=== PATIENT | female | born 1960 | race Two or more races ===

== ENCOUNTER 2021-08-24 07:31 | Emergency (ER) | payer OTHER ==
[2021-08-24 07:55] VITALS: TEMP 97.8; BMI 27.1
[2021-08-24 10:01] LABS: BASO % 0.9 % (0-2.0); EOS % 1.4 % (0-4.5); HEMATOCRIT 37.2 % (32.4-45.2); HEMOGLOBIN 12.3 GM/dL (10.7-15.3); LYMPH % 26.6 % (8-40); MCH 27.6 pg (25.7-33.7); MCHC 33.2 g/dl (32.0-36.0); MEAN CELL VOLUME 83.2 fl (80-96); MEAN PLT VOLUME 8.5 fl (7.5-11.1); MONO % 6.9 % (3.8-10.2); NEUT % 64.2 % (42.8-82.8); PLATELET COUNT 386 10^3/uL (134-434); RBC 4.47 M/mm3 (3.60-5.2); WHITE BLOOD COUNT 7.1 K/mm3 (4.0-10.0)
[2021-08-24 10:20] LABS: CALCIUM 10.3 mg/dL (8.5-10.1)
[2021-08-24 10:21] LABS: ALBUMIN 3.9 g/dl (3.4-5.0)
[2021-08-24 10:24] LABS: CREATININE 0.7 mg/dL (0.55-1.3)
[2021-08-24 10:25] LABS: BILIRUBIN,TOTAL 0.3 mg/dL (0.2-1); TOT PROT 7.7 g/dl (6.4-8.2)
[2021-08-24] MEDS ORDERED: CLINDAMYCIN HCL 150 MG CAPSULE (FP) PO ONE (12:14)
[2021-08-24] MEDS ORDERED: CLINDAMYCIN HCL 150 MG CAPSULE (FP) ONE (12:17)
[2021-08-24] MEDS ORDERED: KETOROLAC TROMETHAMINE 15 MG/ML VIAL ONE (12:18)
[2021-08-24 13:06] VITALS: BP 153/87; PULSE 89
== END 2021-08-24 13:07 | disposition home or self-care (01) ==
LOC: JER 07:31
PROC: 3E0233Z Introduction of Anti-inflammatory into Muscle, Percutaneous Approach (ICD-10-PCS; principal; 2021-08-24)
DX: L97.818 Non-pressure chronic ulcer of other part of right lower leg with other specified severity (principal)
CPT/HCPCS: 36415; 73590-TC-RT-FY; 80053; 85025; 87070; 87205; 99284-25

== ENCOUNTER 2021-08-26 08:38 | Emergency (ER) | payer OTHER ==
[2021-08-26 08:48] VITALS: BP 151/81; PULSE 86; TEMP 98.2; BMI 27.1
== END 2021-08-26 10:05 | disposition home or self-care (01) ==
LOC: JERFT 08:38
DX: Z48.00 Encounter for change or removal of nonsurgical wound dressing (principal)
CPT/HCPCS: 99281-25